=== PATIENT | male | born 2000 | race Caucasian/White ===

== ENCOUNTER 2023-06-18 17:28 | Emergency (ER) | payer BC, SELFPAY ==
[2023-06-18 17:35] VITALS: BP 155/101; PULSE 82; RESP 18; TEMP 36.6; O2SAT 100; BMI 21.8
--- NOTE | 2023-06-18 17:53 | ED.GENADULT ---
HPI - General Adult General Chief complaint: Head Injury/Pain Stated complaint: laceration on chin; teeth and head hurts Time Seen by Provider: 06/18/23 17:32 History of Present Illness HPI narrative: This 23-year-old male comes in with an injury to his chin that occurred just prior to arrival. He was using a shot grinder operator on at truck when the shot grinder operator machine kicked back and was yet spinning when it hit his chin. He has a laceration across the angle of the chin. He did not have loss of consciousness. He does not have any other injury. His tetanus status is just out of date occurring a bit over 10 years ago. Related Data Home Medications Medication Instructions Recorded Confirmed No Known Home Medications 06/18/23 06/18/23 Allergies Allergy/AdvReac Type Severity Reaction Status Date / Time No Known Drug Allergies Allergy Verified 06/18/23 17:35 Review of Systems Status of ROS: Reports: 10 or more systems reviewed and unremarkable except as noted in History and below Narrative: Constitutional: No fevers, no weight gain or loss. Eyes: No discharge. No vision changes. HENT: No congestion, no sore throat, no ear pain. Cardiovascular: No chest pain, no palpitations. Respiratory: No shortness of breath, no wheezes, no cough. Gastrointestinal: No abdominal pain, no vomiting, no diarrhea. Genitourinary: No dysuria, no hematuria. Musculoskeletal: Normal range of motion. Skin: No rashes, no pruritis. Neurological: No dizziness, weakness, sensory change, speech change. Endo/Heme/Allergies: No bruising or bleeding. No polydipsia. Pysch: no suicidality, no anxiety, no insomnia. All other systems reviewed and are negative. Exam Narrative: Exam Narrative: Constitutional: Well-developed, well-nourished, no acute distress. HEENT: 2 cm linear laceration across the angle of the chin just left of midline. Oropharynx appears normal. Neck: Normal range of motion. Nontender. Supple. Heart: Intact distal pulses. Lungs: No chest discomfort. No wheezes, rhonchi, or rales. Abdomen: Nontender. Back: Normal range of motion. Extremities: Normal range of motion. No injury. Skin: Intact. No rash. Warm. No erythema or pallor. Neurologic: No altered sensation. No weakness. Alert and oriented. Psychiatric: No suicidality. No anxiety or depression. No insomnia. Nursing notes and vitals signs are reviewed. Const: Vital Signs, click to edit/add: Vital Signs - 24 hr 06/18/23 17:35 Temperature 97.8 F Pulse Rate [Pulse Oximeter] 82 Respiratory Rate 18 Blood Pressure [Ri ght Upper Arm] 155/101 H Pulse Oximetry 100 Oxygen Delivery Me thod Room Air Course Vital Signs Vital signs: Initial Vital Signs Temperature 97.8 F 06/18/23 17:35 Temperature Source Temporal Artery Scan 06/18/23 17:35 Pulse Rate 82 06/18/23 17:35 Respiratory Rate 18 06/18/23 17:35 Blood Pressure 155/101 H 06/18/23 17:35 Blood Pressure Mean 119 H 06/18/23 17:35 Blood Pressure Position Semi-Fowlers 06/18/23 17:35 Pulse Oximetry 100 06/18/23 17:35 Oxygen Delivery Method Room Air 06/18/23 17:35 Vital Signs Temperature 97.8 F 06/18/23 17:35 Pulse Rate 82 06/18/23 17:35 Respiratory Rate 18 06/18/23 17:35 Blood Pressure 155/101 H 06/18/23 17:35 Pulse Oximetry 100 06/18/23 17:35 Oxygen Delivery Method Room Air 06/18/23 17:35 Temperature 97.8 F 06/18/23 17:35 Pulse Rate 82 06/18/23 17:35 Respiratory Rate 18 06/18/23 17:35 Blood Pressure 155/101 H 06/18/23 17:35 Pulse Oximetry 100 06/18/23 17:35 Oxygen Delivery Method Room Air 06/18/23 17:35 Medical Decision Making MDM Narrative Medical decision making narrative: This patient has a 2 cm laceration on his chin. After anesthesia with 1% lidocaine the wound was cleansed and explored to its base. Four sutures were placed in interrupted fashion using 4.0 blue Prolene suture. Instructions were given regarding wound care and the need to return to clinic or urgent care in 5-7 days for suture removal. The patient did receive a tetanus vaccination here. Discharge Plan Discharge Clinical Impression: Chin laceration Patient Disposition: Home, Self-Care Condition: Improved Additional Instructions: Keep wound clean and dry. Follow-up with clinic or urgent care in 5-7 days for suture removal. Prescriptions: No Action No Known Home Medications Follow Up/Referrals: Provider,Not a Local [Primary Care Provider] - Stand Alone Forms: [employer] Info Instructions
[2023-06-18] MEDS: TETANUS/DIPHTH/PERTUSSIS 0.5 ML SYRINGE IM (18:22)
== END 2023-06-18 18:25 | disposition home or self-care (01) ==
PROVIDERS: Emergency Provider Emergency Medicine Emergency Medical Services
DX: S01.81XA Laceration without foreign body of other part of head, initial encounter (principal); W31.2XXA Contact with powered woodworking and forming machines, initial encounter
CPT/HCPCS: 12011; 90471; 90715; 99284